=== PATIENT | male | born 1980 | race Two or more races ===

== ENCOUNTER 2017-09-14 17:50 | Emergency (ER) | payer SELFPAY ==
[~2017-09-14] VITALS: Ht 172.7 cm; Wt 108.9 kg
[2017-09-14] MEDS ORDERED: diphenhdrAMINE HCL 50 MG/1 ML VL IM ONE (18:15)
[2017-09-14] MEDS ORDERED: HALOPERIDOL LACTATE 5 MG/ML INJ VIAL IM ONE (18:15)
[2017-09-14] MEDS ORDERED: LORazepam 2MG/ML-1ML VIAL IM ONE (18:15)
[2017-09-14 18:49] LABS: Basophils # (auto) 0.1 uL; Basophils % (auto) 0.5 % (0.0-2.0); Eosinophils # (auto) 0.3 uL; Eosinophils % (auto) 1.8 % (0.0-7.0); Hematocrit 46.3 % (41.0-53.0); Hemoglobin 15.6 g/dL (13.5-17.5); Lymphocytes # (auto) 2.3 uL; Mean Corpuscular Hemoglobin 30.1 pg (28.0-32.0); Mean Corpuscular Hgb Conc. 33.6 g/dL (32.0-36.0); Mean Corpuscular Volume 89.6 fL (80.0-100.0); Mean Platelet Volume 10.5 fL (6.9-10.8); Monocytes % (auto) 6.4 % (0.0-12.0); Neutrophils # (auto) 12.5 uL; Neutrophils % (auto) 77.3 % (37.0-80.0); Nucleated Red Blood Cells % 0.1 %; Platelet Count (auto) 250 10^3/uL (140-450); Red Cell Distribution Width 13.1 % (11.8-14.3); White Blood Cell 16.2 10^3/uL (4.4-10.8)
[2017-09-14 18:50] LABS: Anion Gap 8 (5-15); BUN/Creatinine Ratio 8.7; Blood Urea Nitrogen 11 mg/dL (7-18); Calcium 9.1 mg/dL (8.5-10.1); Carbon Dioxide 26 mmol/L (21-32); Chloride 103 mmol/L (98-107); GFR African American 82 mL/min; GFR Non-African American 68 mL/min; Glucose 125 mg/dL (74-106); Potassium 4.3 mmol/L (3.5-5.1); Sodium 137 mmol/L (136-145)
[2017-09-14] MEDS ORDERED: LITHIUM CARBONATE 300 MG TAB PO ONE (21:00)
[2017-09-14] MEDS ORDERED: LIDOCAINE HCL 2% TOP JELLY 5ML TOP ONE (23:18)
[2017-09-15 06:33] VITALS: BP 96/68
== END 2017-09-15 07:07 | disposition left against medical advice (07) ==
LOC: ER 17:58
DX: R45.851 Suicidal ideations (principal); Z53.29 Procedure and treatment not carried out because of patient's decision for other reasons
CPT/HCPCS: 36415; 80048; 80307; 80320; 85025; 96372; 99284; J1200; J1630; J2060